=== PATIENT | female | born 1975 | race Caucasian/White ===

== ENCOUNTER 2018-02-19 19:38 | Emergency (ER) | payer MEDICAID ==
[2018-02-19 20:31] LABS: URINE BLOOD (Dip) POC 2+ (NEGATIVE); URINE GLUCOSE (Dip) POC Negative (NEGATIVE); URINE KETONES (Dip) POC Negative (NEGATIVE); URINE LEUKOCYTE EST (Dip) POC 2+ (NEGATIVE); URINE NITRITE (Dip) POC Negative (NEGATIVE); URINE TOTAL PROTEIN POC Trace (NEGATIVE)
[2018-02-19] MEDS: KETOROLAC 60 MG INJ IM (20:39)
== END 2018-02-19 21:27 | disposition home or self-care (01) ==
LOC: FTE 19:38
DX: R30.0 Dysuria (principal)
CPT/HCPCS: 81003; 81025; 96372; 99284-25

== ENCOUNTER 2018-02-20 18:26 | Emergency (ER) | payer MEDICAID ==
[2018-02-20] MEDS: ONDANSETRON (ODT) 4 MG TAB ODT (20:31)
[2018-02-20] MEDS: morphine 4 MG/ML VIAL IM (20:36)
[2018-02-20 20:44] LABS: ADD MAN DIFF? NO
[2018-02-20 20:46] LABS: BASOPHILS % 0.3 % (0.0-2.0); EOSINOPHILS # 0.1 10^3/ul (0.0-0.5); EOSINOPHILS % 0.8 % (0.0-7.0); HEMATOCRIT 38.2 % (37.0-47.0); HEMOGLOBIN 13.2 g/dl (12.0-16.0); LYMPHOCYTES % 16.5 % (15.0-51.0); MEAN CORPUSCULAR HEMOGLOBIN 32.3 pg (29.0-33.0); MEAN CORPUSCULAR HGB CONC 34.6 g/dl (32.0-37.0); MEAN CORPUSCULAR VOLUME 93.4 fl (82.0-101.0); MEAN PLATELET VOLUME 9.2 fl (7.4-10.4); MONOCYTE # 0.7 10^3/ul (0.3-0.9); MONOCYTES % 6.2 % (0.0-11.0); NEUTROPHILS % 75.9 % (39.0-77.0); PLATELET COUNT 241 10^3/UL (140-415); RED BLOOD COUNT 4.09 10^6/ul (4.20-5.40); RED CELL DISTRIBUTION WIDTH 12.5 % (11.5-14.5)
[2018-02-20 20:46] LABS: WHITE BLOOD COUNT 11.8 10^3/ul (4.8-10.8)
[2018-02-20 20:55] LABS: ADD UMIC YES; UR ASCORBIC ACID NEGATIVE (NEGATIVE); UR BILIRUBIN (Dip) NEGATIVE (NEGATIVE); UR BLOOD (Dip) NEGATIVE (NEGATIVE); UR CLARITY SLIGHTLY CLOUDY (CLEAR); UR COLOR AMBER (YELLOW); UR GLUCOSE (Dip) NEGATIVE (NEGATIVE); UR KETONES (Dip) NEGATIVE (NEGATIVE); UR LEUKOCYTE ESTERASE (Dip) TRACE Leu/ul (NEGATIVE); UR NITRITE (Dip) POSITIVE (NEGATIVE); UR RBC 16 /HPF (0-5); UR SPECIFIC GRAVITY (Dip) 1.015 (1.003-1.030); UR TOTAL PROTEIN (Dip) 2+ mg/dl (NEGATIVE); UR UROBILINOGEN (Dip) 2+ mg/dL (NEGATIVE); UR WBC > 182 /HPF (0-5)
[2018-02-20 20:56] LABS: UR BACTERIA FEW /HPF (NONE SEEN); UR MUCUS FEW /HPF (NONE SEEN); UR SQUAMOUS EPITHELIAL CELL FEW /HPF (FEW)
[2018-02-20 21:07] LABS: ALANINE AMINOTRANSFERASE 18 IU/L (13-69); ALBUMIN 3.6 g/dl (3.3-4.9); ALBUMIN/GLOBULIN RATIO 1.05; ALKALINE PHOSPHATASE 88 IU/L (42-121); ANION GAP 4 (5-13); ASPARTATE AMINO TRANSFERASE 21 IU/L (15-46); BILIRUBIN,INDIRECT 0.5 mg/dl (0-1.1); BILIRUBIN,TOTAL 0.5 mg/dl (0.2-1.3); BLOOD UREA NITROGEN 10 mg/dl (7-20); CALCIUM 9.3 mg/dl (8.4-10.2); CARBON DIOXIDE 32 mmol/L (21-31); CHLORIDE 106 mmol/L (97-110); CREATININE 0.58 mg/dl (0.44-1.00); GLUCOSE 104 mg/dl (70-220); LIPASE 64 U/L (23-300); POTASSIUM 4.2 mmol/L (3.5-5.1); SODIUM 142 mmol/L (135-144)
== END 2018-02-20 22:19 | disposition home or self-care (01) ==
LOC: FTE 18:26
DX: N39.0 Urinary tract infection, site not specified (principal); R31.9 Hematuria, unspecified
CPT/HCPCS: 36415; 74176; 80053; 81001; 83690; 85025; 87086; 96372; 99285-25

== ENCOUNTER 2018-09-13 08:34 | Emergency (ER) | payer MEDICAID ==
[2018-09-13] MEDS: FLUORESCEIN STRIP LEFT EYE (10:18)
[2018-09-13] MEDS: TETRACAINE 0.5% 4 ML OPH LEFT EYE (10:18)
== END 2018-09-13 10:48 | disposition home or self-care (01) ==
LOC: FTE 08:34
DX: S05.92XA Unspecified injury of left eye and orbit, initial encounter (principal); X58.XXXA Exposure to other specified factors, initial encounter; Y92.9 Unspecified place or not applicable
CPT/HCPCS: 99283; Z7502